=== PATIENT | female | born 1955 ===

== ENCOUNTER 2017-11-10 10:14 | Outpatient (REF) | payer BC, SELFPAY ==
[2017-11-10 13:50] LABS: Abs Immature Grans 0.01 k/cumm (0.0-0.09); Absolute Basophil Count 0.06 k/cumm (0.0-0.2); Absolute Eosinophil Count 0.27 k/cumm (0.0-0.7); Absolute Lymphocyte Count 1.51 k/cumm (1.2-3.4); Absolute Monocyte Count 0.35 k/cumm (0.11-0.7); Absolute Neutrophil Count 2.46 k/cumm (1.2-6.7); Basophils % 1.3; Eosinophils % 5.8; HCT 42.3 % (36.0-46.0); Immature Grans % 0.2; Lymphocytes % 32.4; Mean Corp. HGB Concentration 33.1 g/dL (32.0-36.0); Mean Corpuscular Hemoglobin 29.9 pg (27.0-33.0); Mean Corpuscular Volume 90.4 fL (80-95); Mean Platelet Volume 9.6 fL (8.0-11.0); Monocytes % 7.5; Neutrophils % 52.8; Platelet Count 328 x1000/uL (130-400); RBC 4.68 m/cumm (4.00-5.20); RBC Distribution Width 13.6 % (11.7-14.6); White Blood Cell Count 4.66 k/cumm (4.4-10.8)
[2017-11-10 14:26] LABS: ALT 27 U/L (12-78); AST 27 U/L (15-37); Albumin 3.7 g/dL (3.4-5.0); Alkaline Phosphatase 60 U/L (46-116)
[2017-11-10 14:28] LABS: ESR 11 MM/HR (0-30)
== END 2017-11-10 10:34 ==
LOC: NCHCN 10:14
PROVIDERS: PCP Internal Medicine; Visit Provider Nurse Practitioner Family
DX: M05.79 Rheumatoid arthritis with rheumatoid factor of multiple sites without organ or systems involvement (principal)
CPT/HCPCS: 85652; 82040; 82565; 84075; 84450; 84460; 85025

== ENCOUNTER 2017-12-03 01:11 | Outpatient (CLI) | payer BC, SELFPAY ==
--- NOTE | 2017-12-03 09:30 | DI.RAD_ITS ---
SYMPTOMS/DIAGNOSIS: SHORTNESS OF BREATH, R06.02 PA AND LATERAL CHEST: Comparison is made with November,. The heart size is normal. Scoliosis is again noted. The lungs are well inflated and clear. No infiltrate, effusion or pulmonary edema is seen. IMPRESSION: Scoliosis, otherwise negative.
== END 2017-12-03 01:31 ==
PROVIDERS: PCP Internal Medicine; Visit Provider Nurse Practitioner Family
DX: R06.02 Shortness of breath (principal)
CPT/HCPCS: 71046

== ENCOUNTER 2017-12-03 02:31 | Outpatient (CLI) | payer BC, SELFPAY ==
[2017-12-03] MEDS: Albuterol HFA 18 GM 200 PUFF INH IH (10:58)
[2017-12-03] MEDS: Inhaler, Assist Device 1 EACH MC (10:58)
--- NOTE | 2017-12-04 09:57 | PFT_ITS ---
PULMONARY FUNCTION TEST REPORT DATE OF SERVICE: December 03, 2017 REQUESTING PROVIDER: Berkley Champagne APRN Spirometry shows severe obstructive airways disease with significant bronchodilator response. Lung volumes show no evidence of restriction. There is moderate to severe hyperinflation and air trapping. Diffusion capacity normal. Airways resistance elevated. IMPRESSION: Severe obstructive airways disease with significant bronchodilator response. This is associated with moderate hyperinflation and air trapping. Clinical correlation recommended. PADMAJA/yoselin D/ SEE SCANNED DOCUMENT IN THE EMR FOR DATA AND GRAPHS
== END 2017-12-03 02:51 ==
PROVIDERS: PCP Internal Medicine; Visit Provider Nurse Practitioner Family
DX: R06.02 Shortness of breath (principal)
CPT/HCPCS: 94060; 94150; 94726; 94729

== ENCOUNTER 2018-03-18 11:23 | Outpatient (REF) | payer BC, SELFPAY ==
[2018-03-18 21:42] LABS: Abs Immature Grans 0.02 k/cumm (0.0-0.09); Absolute Basophil Count 0.06 k/cumm (0.0-0.2); Absolute Eosinophil Count 0.19 k/cumm (0.0-0.7); Absolute Lymphocyte Count 1.87 k/cumm (1.2-3.4); Absolute Neutrophil Count 4.35 k/cumm (1.2-6.7); Basophils % 0.8; Eosinophils % 2.7; HCT 42.4 % (36.0-46.0); HGB 13.8 g/dL (12.0-15.5); Immature Grans % 0.3; Lymphocytes % 26.4; Mean Corp. HGB Concentration 32.5 g/dL (32.0-36.0); Mean Corpuscular Hemoglobin 29.9 pg (27.0-33.0); Mean Platelet Volume 10.2 fL (8.0-11.0); Monocytes % 8.5; Neutrophils % 61.3; Platelet Count 341 x1000/uL (130-400); RBC 4.61 m/cumm (4.00-5.20); RBC Distribution Width 13.9 % (11.7-14.6); White Blood Cell Count 7.09 k/cumm (4.4-10.8)
[2018-03-18 21:56] LABS: ALT 22 U/L (12-78); AST 24 U/L (15-37); Albumin 3.8 g/dL (3.4-5.0); Alkaline Phosphatase 52 U/L (46-116); CREATININE 0.72 mg/dL (0.55-1.02)
[2018-03-18 22:29] LABS: ESR 6 MM/HR (0-30)
== END 2018-03-18 11:43 ==
LOC: NCHCN 11:23
PROVIDERS: PCP Internal Medicine; Visit Provider Internal Medicine
DX: M05.79 Rheumatoid arthritis with rheumatoid factor of multiple sites without organ or systems involvement (principal); Z79.899 Other long term (current) drug therapy
CPT/HCPCS: 85652; 82040; 82565; 84075; 84450; 84460; 85025

== ENCOUNTER 2018-07-23 09:51 | Outpatient (REF) | payer BC, SELFPAY ==
[2018-07-23 13:42] LABS: ALT 32 U/L (12-78); AST 31 U/L (15-37); Albumin 3.8 g/dL (3.4-5.0); Alkaline Phosphatase 60 U/L (46-116); CREATININE 0.72 mg/dL (0.55-1.02)
[2018-07-23 14:26] LABS: Abs Immature Grans 0.01 k/cumm (0.0-0.09); Absolute Basophil Count 0.05 k/cumm (0.0-0.2); Absolute Eosinophil Count 0.11 k/cumm (0.0-0.7); Absolute Monocyte Count 0.42 k/cumm (0.11-0.7); Absolute Neutrophil Count 2.35 k/cumm (1.2-6.7); Basophils % 1.1; Eosinophils % 2.4; HCT 42.2 % (36.0-46.0); HGB 14.1 g/dL (12.0-15.5); Immature Grans % 0.2; Lymphocytes % 35.2; Mean Corp. HGB Concentration 33.4 g/dL (32.0-36.0); Mean Corpuscular Hemoglobin 30.1 pg (27.0-33.0); Mean Platelet Volume 10.5 fL (8.0-11.0); Monocytes % 9.3; Neutrophils % 51.8; Platelet Count 288 x1000/uL (130-400); RBC 4.69 m/cumm (4.00-5.20); RBC Distribution Width 13.9 % (11.7-14.6); White Blood Cell Count 4.54 k/cumm (4.4-10.8)
[2018-07-23 15:53] LABS: ESR 12 MM/HR (0-30)
== END 2018-07-23 10:11 ==
LOC: NCHCN 09:51
PROVIDERS: PCP Internal Medicine; Visit Provider Nurse Practitioner Family
DX: M05.79 Rheumatoid arthritis with rheumatoid factor of multiple sites without organ or systems involvement (principal)
CPT/HCPCS: 85652; 82040; 82565; 84075; 84450; 84460; 85025

== ENCOUNTER 2018-11-12 17:10 | Outpatient (REF) | payer BC, SELFPAY ==
[2018-11-12 21:23] LABS: Abs Immature Grans 0.01 k/cumm (0.0-0.09); Absolute Basophil Count 0.07 k/cumm (0.0-0.2); Absolute Eosinophil Count 0.33 k/cumm (0.0-0.7); Absolute Lymphocyte Count 2.24 k/cumm (1.2-3.4); Absolute Monocyte Count 0.51 k/cumm (0.11-0.7); Absolute Neutrophil Count 2.97 k/cumm (1.2-6.7); Basophils % 1.1; Eosinophils % 5.4; HCT 40.3 % (36.0-46.0); HGB 13.5 g/dL (12.0-15.5); Immature Grans % 0.2; Lymphocytes % 36.5; Mean Corp. HGB Concentration 33.5 g/dL (32.0-36.0); Mean Corpuscular Hemoglobin 30.3 pg (27.0-33.0); Mean Corpuscular Volume 90.4 fL (80-95); Mean Platelet Volume 9.8 fL (8.0-11.0); Monocytes % 8.3; Neutrophils % 48.5; Platelet Count 363 x1000/uL (130-400); RBC 4.46 m/cumm (4.00-5.20); RBC Distribution Width 13.3 % (11.7-14.6); White Blood Cell Count 6.13 k/cumm (4.4-10.8)
[2018-11-12 21:46] LABS: ALT 26 U/L (14-59); AST 26 U/L (15-37); Albumin 3.7 g/dL (3.4-5.0); Alkaline Phosphatase 60 U/L (46-116)
[2018-11-12 22:07] LABS: ESR 10 mm/hr (0-30)
[2018-11-12 22:15] LABS: CREATININE 0.72 mg/dL (0.55-1.02)
== END 2018-11-12 17:30 ==
LOC: NCHCN 17:10
PROVIDERS: PCP Internal Medicine; Visit Provider Nurse Practitioner Family
DX: M05.79 Rheumatoid arthritis with rheumatoid factor of multiple sites without organ or systems involvement (principal); Z79.899 Other long term (current) drug therapy
CPT/HCPCS: 85652; 82040; 82565; 84075; 84450; 84460; 85025

== ENCOUNTER 2019-03-01 10:09 | Outpatient (REF) | payer BC, SELFPAY ==
[2019-03-01 12:38] LABS: Abs Immature Grans 0.01 k/cumm (0.0-0.09); Absolute Basophil Count 0.06 k/cumm (0.0-0.2); Absolute Eosinophil Count 0.14 k/cumm (0.0-0.7); Absolute Lymphocyte Count 1.83 k/cumm (1.2-3.4); Absolute Monocyte Count 0.29 k/cumm (0.11-0.7); Basophils % 1.2; Eosinophils % 2.9; HCT 42.4 % (36.0-46.0); HGB 14.1 g/dL (12.0-15.5); Immature Grans % 0.2 %; Lymphocytes % 37.9; Mean Corp. HGB Concentration 33.3 g/dL (32.0-36.0); Mean Corpuscular Hemoglobin 30.2 pg (27.0-33.0); Mean Corpuscular Volume 90.8 fL (80-95); Mean Platelet Volume 9.6 fL (8.0-11.0); Neutrophils % 51.8; Platelet Count 359 x1000/uL (130-400); RBC 4.67 m/cumm (4.00-5.20); RBC Distribution Width 13.6 % (11.7-14.6); White Blood Cell Count 4.83 k/cumm (4.4-10.8)
[2019-03-01 13:14] LABS: ALT 26 U/L (14-59); AST 27 U/L (15-37); Albumin 4.1 g/dL (3.4-5.0); Alkaline Phosphatase 61 U/L (46-116); CREATININE 0.63 mg/dL (0.55-1.02)
[2019-03-01 13:28] LABS: ESR 8 mm/hr (0-30)
== END 2019-03-01 10:29 ==
LOC: NCHCN 10:09
PROVIDERS: PCP Internal Medicine; Visit Provider Nurse Practitioner Family
DX: M05.79 Rheumatoid arthritis with rheumatoid factor of multiple sites without organ or systems involvement (principal); Z79.899 Other long term (current) drug therapy
CPT/HCPCS: 85652; 82040; 82565; 84075; 84450; 84460; 85025

== ENCOUNTER 2019-08-04 16:27 | Outpatient (REF) | payer BC, SELFPAY ==
[2019-08-04 20:33] LABS: Abs Immature Grans 0.01 k/cumm (0.0-0.09); Absolute Basophil Count 0.04 k/cumm (0.0-0.2); Absolute Eosinophil Count 0.19 k/cumm (0.0-0.7); Absolute Lymphocyte Count 2.52 k/cumm (1.2-3.4); Absolute Monocyte Count 0.47 k/cumm (0.11-0.7); Absolute Neutrophil Count 3.74 k/cumm (1.2-6.7); Basophils % 0.6; Eosinophils % 2.7; HCT 40.4 % (36.0-46.0); HGB 13.5 g/dL (12.0-15.5); Immature Grans % 0.1 %; Lymphocytes % 36.2; Mean Corp. HGB Concentration 33.4 g/dL (32.0-36.0); Mean Corpuscular Hemoglobin 30.3 pg (27.0-33.0); Mean Corpuscular Volume 90.6 fL (80-95); Mean Platelet Volume 10.1 fL (8.0-11.0); Monocytes % 6.7; Neutrophils % 53.7; Platelet Count 300 x1000/uL (130-400); RBC 4.46 m/cumm (4.00-5.20); RBC Distribution Width 13.3 % (11.7-14.6); White Blood Cell Count 6.97 k/cumm (4.4-10.8)
[2019-08-04 21:01] LABS: ALT 31 U/L (14-59); AST 28 U/L (15-37); Albumin 3.9 g/dL (3.4-5.0); Alkaline Phosphatase 55 U/L (46-116); CREATININE 0.75 mg/dL (0.55-1.02)
[2019-08-04 21:18] LABS: ESR 5 mm/hr (0-30)
== END 2019-08-04 16:47 ==
LOC: NCHCN 16:27
PROVIDERS: PCP Internal Medicine; Visit Provider Nurse Practitioner Family
DX: M05.79 Rheumatoid arthritis with rheumatoid factor of multiple sites without organ or systems involvement (principal); Z79.899 Other long term (current) drug therapy
CPT/HCPCS: 85652; 82040; 82565; 84075; 84450; 84460; 85025

== ENCOUNTER 2019-12-08 14:01 | Outpatient (REF) | payer BC, SELFPAY ==
[2019-12-08 21:13] LABS: Abs Immature Grans 0.01 10^3/uL (0.0-0.06); Absolute Basophil Count 0.06 10^3/uL (0.0-0.2); Absolute Eosinophil Count 0.18 10^3/uL (0.0-0.7); Absolute Lymphocyte Count 2.04 10^3/uL (1.2-3.4); Absolute Monocyte Count 0.44 10^3/uL (0.1-0.8); Absolute Neutrophil Count 2.45 10^3/uL (1.2-6.7); Basophils % 1.2; Eosinophils % 3.5; HCT 44.2 % (36.0-46.0); HGB 14.1 g/dL (11.2-15.7); Immature Grans % 0.2; Lymphocytes % 39.4; MCH 29.8 pg (27.0-33.0); MCHC 31.9 % (32.0-36.0); MCV 93.4 fL (80-95); MPV 9.8 fL (8.0-11.0); Monocytes % 8.5; Neutrophils % 47.2; Nucleated RBC 0 %; Platelet Count 336 10^3/uL (130-400); RBC 4.73 10^6/uL (3.93-5.22); RDW 13.4 % (11.7-14.6); RDW-SD 45.3 fL; WBC 5.18 10^3/uL (4.4-10.8)
[2019-12-08 21:32] LABS: ALT 24 U/L (14-59); AST 25 U/L (15-37); Albumin 3.8 g/dL (3.4-5.0); Alkaline Phosphatase 56 U/L (46-116); CREATININE 0.66 mg/dL (0.55-1.02)
[2019-12-08 21:51] LABS: ESR 7 mm/hr (0-30)
== END 2019-12-08 14:21 ==
LOC: NCHCN 14:01
PROVIDERS: PCP Internal Medicine; Visit Provider Nurse Practitioner Family
DX: M05.79 Rheumatoid arthritis with rheumatoid factor of multiple sites without organ or systems involvement (principal); Z79.899 Other long term (current) drug therapy
CPT/HCPCS: 85652; 82040; 82565; 84075; 84450; 84460; 85025

== ENCOUNTER 2020-06-18 09:51 | Outpatient (REF) | payer BC, SELFPAY ==
[2020-06-18 13:32] LABS: Abs Immature Grans 0.02 10^3/uL (0.0-0.06); Absolute Basophil Count 0.04 10^3/uL (0.0-0.2); Absolute Lymphocyte Count 1.75 10^3/uL (1.2-3.4); Absolute Monocyte Count 0.43 10^3/uL (0.1-0.8); Absolute Neutrophil Count 2.33 10^3/uL (1.2-6.7); Basophils % 0.9; Eosinophils % 2.1; HCT 43.4 % (36.0-46.0); HGB 14.4 g/dL (11.2-15.7); Immature Grans % 0.4; Lymphocytes % 37.5; MCH 29.6 pg (27.0-33.0); MCHC 33.2 % (32.0-36.0); MCV 89.1 fL (80-95); MPV 9.6 fL (8.0-11.0); Monocytes % 9.2; Neutrophils % 49.9; Nucleated RBC 0 %; Platelet Count 337 10^3/uL (130-400); RBC 4.87 10^6/uL (3.93-5.22); RDW 13.2 % (11.7-14.6); RDW-SD 43.3 fL; WBC 4.67 10^3/uL (4.4-10.8)
[2020-06-18 13:40] LABS: ALT 23 U/L (14-59); AST 25 U/L (15-37); Albumin 4.1 g/dL (3.4-5.0); Alkaline Phosphatase 69 U/L (46-116); CREATININE 0.7 mg/dL (0.55-1.02)
[2020-06-18 13:41] LABS: ESR 5 mm//hr (0-30)
== END 2020-06-18 09:52 | disposition home or self-care (01) ==
LOC: NCHCN 09:51
PROVIDERS: PCP Internal Medicine; Visit Provider Nurse Practitioner Family
DX: M05.79 Rheumatoid arthritis with rheumatoid factor of multiple sites without organ or systems involvement (principal)
CPT/HCPCS: 85652; 82040; 82565; 84075; 84450; 84460; 85025

== ENCOUNTER 2020-12-24 11:53 | Outpatient (REF) | payer BC, SELFPAY ==
[2020-12-24 14:33] LABS: Abs Immature Grans 0.01 10^3/uL (0.0-0.06); Absolute Basophil Count 0.07 10^3/uL (0.0-0.2); Absolute Eosinophil Count 0.12 10^3/uL (0.0-0.7); Absolute Lymphocyte Count 2.07 10^3/uL (1.2-3.4); Absolute Monocyte Count 0.53 10^3/uL (0.1-0.8); Absolute Neutrophil Count 2.77 10^3/uL (1.2-6.7); Basophils % 1.3; Eosinophils % 2.2; HCT 44.9 % (36.0-46.0); HGB 14.5 g/dL (11.2-15.7); Immature Grans % 0.2; Lymphocytes % 37.2; MCH 29.4 pg (27.0-33.0); MCHC 32.3 % (32.0-36.0); MCV 90.9 fL (80-95); MPV 9.7 fL (8.0-11.0); Monocytes % 9.5; Neutrophils % 49.6; Nucleated RBC 0 %; Platelet Count 351 10^3/uL (130-400); RBC 4.94 10^6/uL (3.93-5.22); RDW 13.1 % (11.7-14.6); RDW-SD 43.2 fL; WBC 5.57 10^3/uL (4.4-10.8)
[2020-12-24 14:38] LABS: ALT 25 U/L (14-59); AST 25 U/L (15-37); Albumin 4.2 g/dL (3.4-5.0); Alkaline Phosphatase 60 U/L (46-116); CREATININE 0.7 mg/dL (0.55-1.02)
[2020-12-24 14:39] LABS: ESR 3 mm/hr (0-30)
[2020-12-25 17:10] LABS: C-Reactive Protein 0.06 mg/dL (0.0-0.3)
== END 2020-12-24 11:54 | disposition home or self-care (01) ==
LOC: NCHCN 11:53
PROVIDERS: PCP Internal Medicine; Visit Provider Nurse Practitioner Family
DX: Z79.899 Other long term (current) drug therapy (principal); M06.09 Rheumatoid arthritis without rheumatoid factor, multiple sites; M05.79 Rheumatoid arthritis with rheumatoid factor of multiple sites without organ or systems involvement
CPT/HCPCS: 85652; 82040; 82565; 84075; 84450; 84460; 85025; 86140

== ENCOUNTER 2021-06-24 15:18 | Outpatient (REF) | payer BC, SELFPAY ==
[2021-06-24 21:31] LABS: Abs Immature Grans 0.01 10^3/uL (0.0-0.06); Absolute Basophil Count 0.07 10^3/uL (0.0-0.2); Absolute Lymphocyte Count 1.93 10^3/uL (1.2-3.4); Absolute Monocyte Count 0.51 10^3/uL (0.1-0.8); Absolute Neutrophil Count 3.34 10^3/uL (1.2-6.7); Basophils % 1.2; Eosinophils % 1.7; HCT 40.6 % (36.0-46.0); HGB 13.3 g/dL (11.2-15.7); Immature Grans % 0.2; Lymphocytes % 32.4; MCHC 32.8 % (32.0-36.0); MCV 91 fL (80-95); MPV 9.7 fL (8.0-11.0); Monocytes % 8.6; Neutrophils % 55.9; Platelet Count 290 10^3/uL (130-400); RBC 4.44 10^6/uL (3.93-5.22); RDW 13.1 % (11.7-14.6); RDW-SD 43.8 fL; WBC 5.96 10^3/uL (4.4-10.8)
[2021-06-24 21:40] LABS: ALT 28 U/L (14-59); AST 30 U/L (15-37); Albumin 3.8 g/dL (3.4-5.0); Alkaline Phosphatase 53 U/L (46-116); CREATININE 0.6 mg/dL (0.55-1.02)
[2021-06-24 21:49] LABS: ESR 4 mm/hr (0-30)
[2021-06-26 10:16] LABS: Anion Gap 8.5 mmol/L (3-11); BUN 15 mg/dL (7-18); Bilirubin, Total 0.4 mg/dL (0.2-1.0); CO2 26.5 mmol/L (21.0-32.0); Calcium 8.5 mg/dL (8.5-10.1); Chloride 106 mmol/L (98-107); Glucose 74 mg/dL (74-106); Potassium 4.3 mmol/L (3.5-5.1); Sodium 141 mmol/L (136-145); Total Protein 6.6 g/dL (6.4-8.2)
== END 2021-06-24 15:19 | disposition home or self-care (01) ==
LOC: NCHCN 15:18
PROVIDERS: PCP Internal Medicine; Visit Provider Nurse Practitioner Family
DX: M05.79 Rheumatoid arthritis with rheumatoid factor of multiple sites without organ or systems involvement (principal); J44.9 Chronic obstructive pulmonary disease, unspecified
CPT/HCPCS: 80053; 85652; 82040; 82565; 84075; 84450; 84460; 85025

== ENCOUNTER 2021-12-10 17:01 | Outpatient (REF) | payer BC, SELFPAY ==
[2021-12-10 14:54] LABS: Abs Immature Grans 0.01 10^3/uL (0.0-0.06); Absolute Basophil Count 0.08 10^3/uL (0.0-0.2); Absolute Eosinophil Count 0.11 10^3/uL (0.0-0.7); Absolute Lymphocyte Count 1.99 10^3/uL (1.2-3.4); Absolute Monocyte Count 0.32 10^3/uL (0.1-0.8); Absolute Neutrophil Count 3.04 10^3/uL (1.2-6.7); Basophils % 1.4; HCT 43.6 % (36.0-46.0); HGB 14.1 g/dL (11.2-15.7); Immature Grans % 0.2; Lymphocytes % 35.9; MCH 29.7 pg (27.0-33.0); MCHC 32.3 % (32.0-36.0); MCV 92 fL (80-95); MPV 9.4 fL (8.0-11.0); Monocytes % 5.8; Neutrophils % 54.7; Platelet Count 320 10^3/uL (130-400); RBC 4.75 10^6/uL (3.93-5.22); RDW 13.2 % (11.7-14.6); RDW-SD 44.5 fL; WBC 5.55 10^3/uL (4.4-10.8)
[2021-12-10 14:56] LABS: ESR 6 mm/hr (0-30)
[2021-12-10 15:07] LABS: ALT 25 U/L (14-59); AST 30 U/L (15-37); Albumin 4.1 g/dL (3.4-5.0); Alkaline Phosphatase 54 U/L (46-116); CREATININE 0.7 mg/dL (0.55-1.02); Estimated GFR 94.73 (mL/min/1.73m2)
[2021-12-11 09:57] LABS: ALT 23 U/L (14-59); AST 27 U/L (15-37); Albumin 4.2 g/dL (3.4-5.0); Alkaline Phosphatase 55 U/L (46-116); Anion Gap 8.9 mmol/L (3-11); BUN 17 mg/dL (7-18); Bilirubin, Total 0.7 mg/dL (0.2-1.0); C-Reactive Protein 0.11 mg/dL (0.0-0.3); CO2 29.1 mmol/L (21.0-32.0); CREATININE 0.7 mg/dL (0.55-1.02); Calcium 9.2 mg/dL (8.5-10.1); Chloride 108 mmol/L (98-107); Estimated GFR 94.73 (mL/min/1.73m2); Glucose 80 mg/dL (74-106); Potassium 5.4 mmol/L (3.5-5.1); Sodium 146 mmol/L (136-145); Total Protein 7.3 g/dL (6.4-8.2)
== END 2021-12-10 17:02 | disposition home or self-care (01) ==
LOC: NCHCN 17:01
PROVIDERS: Internal Medicine Rheumatology; PCP Internal Medicine; Visit Provider Nurse Practitioner Family
DX: M05.79 Rheumatoid arthritis with rheumatoid factor of multiple sites without organ or systems involvement (principal); Z79.899 Other long term (current) drug therapy; J44.9 Chronic obstructive pulmonary disease, unspecified
CPT/HCPCS: 80053; 85652; 82040; 82565; 84075; 84450; 84460; 85025; 86140

== ENCOUNTER 2022-06-25 10:08 | Outpatient (CLI) | payer BC, SELFPAY ==
[2022-06-25 10:19] LABS: Abs Immature Grans 0.02 10^3/uL (0.0-0.06); Absolute Basophil Count 0.05 10^3/uL (0.0-0.2); Absolute Eosinophil Count 0.08 10^3/uL (0.0-0.7); Absolute Lymphocyte Count 1.72 10^3/uL (1.2-3.4); Absolute Monocyte Count 0.51 10^3/uL (0.1-0.8); Absolute Neutrophil Count 2.85 10^3/uL (1.2-6.7); Eosinophils % 1.5; HCT 43.4 % (36.0-46.0); HGB 14.5 g/dL (11.2-15.7); Immature Grans % 0.4; Lymphocytes % 32.9; MCH 29.8 pg (27.0-33.0); MCHC 33.4 % (32.0-36.0); MCV 89 fL (80-95); MPV 8.6 fL (8.0-11.0); Monocytes % 9.8; Neutrophils % 54.4; Platelet Count 322 10^3/uL (130-400); RBC 4.86 10^6/uL (3.93-5.22); RDW 12.8 % (11.7-14.6); RDW-SD 41.5 fL; WBC 5.23 10^3/uL (4.4-10.8)
[2022-06-25 10:57] LABS: ALT 29 U/L (14-59); AST 29 U/L (15-37); Albumin 3.9 g/dL (3.4-5.0); Alkaline Phosphatase 53 U/L (46-116); Anion Gap 5.9 mmol/L (3-11); BUN 14 mg/dL (7-18); Bilirubin, Total 0.4 mg/dL (0.2-1.0); C-Reactive Protein 0.08 mg/dL (0.0-0.3); CO2 30.1 mmol/L (21.0-32.0); CREATININE 0.7 mg/dL (0.55-1.02); Calcium 9.3 mg/dL (8.5-10.1); Chloride 107 mmol/L (98-107); Estimated GFR 94.73 (mL/min/1.73m2); Glucose 89 mg/dL (74-106); Potassium 4.9 mmol/L (3.5-5.1); Sodium 143 mmol/L (136-145); Total Protein 7.4 g/dL (6.4-8.2)
== END 2022-06-25 10:09 | disposition home or self-care (01) ==
PROVIDERS: PCP Internal Medicine; Visit Provider Internal Medicine Rheumatology
DX: M05.79 Rheumatoid arthritis with rheumatoid factor of multiple sites without organ or systems involvement (principal); Z79.899 Other long term (current) drug therapy; M06.9 Rheumatoid arthritis, unspecified
CPT/HCPCS: 36415; 80053; 85025; 86140

== ENCOUNTER 2022-09-15 12:37 | Emergency (ER) | payer BC, SELFPAY ==
[2022-09-15 12:52] VITALS: BP 134/80; PULSE 71; RESP 16; TEMP 37; O2SAT 98
--- NOTE | 2022-09-15 15:14 | DI.RAD_ITS ---
Exam(s) XR PORTABLE CHEST AP EXAM: XR PORTABLE CHEST AP CLINICAL HISTORY: chest pain, trauma TECHNIQUE: 2D digital imaging was performed of the chest. One image was obtained. An AP view was ob tained. COMPARISON: CR XR CHEST 2V PA LATERAL from 12/03/2017 FINDINGS: MEDIASTINUM: Normal. HEART: Normal. PULMONARY VASCULATURE: Normal. LUNGS: Clear. PLEURAL SPACE: No pleural effusion or pneumothorax. BONE:Within normal limits for the patient's age. There is an old healed left clavicular fracture. Th ere is right convex curvature of the thoracic spine. OTHER FINDINGS:Normal. IMPRESSION: No acute pulmonary findings. DATA REPOSITORY: RADIATION DOSE DELIVERED:
--- NOTE | 2022-09-15 15:59 | ED.GENADUL_ITS ---
Discharge Plan Disposition Patient Disposition: Home Condition: Stable Discharge Details Clinical Impression: Laceration of skin of right thigh, Skin tear of right forearm without complication, Contusion of rib on right side Primary Care Provider: Tani Miramontes ED Provider: Hood Luevano Home Meds and New Rx's Prescriptions: New cephalexin 500 mg capsule 500 mg PO TID Qty: 9 0RF Continued leucovorin calcium 25 mg Tablet Patient Comments: pt unsure of dosing. ibuprofen 200 mg Tablet 400 mg PO TID PRN hydroxychloroquine 200 mg Tablet 200 mg PO DAILY Discharge Instructions Instructions: Laceration (ED), Rib Contusion (ED) Additional Instructions: Please follow-up for suture removal in 12 days. Please take antibiotic prophylactically as prescribed. Please contact your primary care physician to arrange follow-up. Return to the ER immediately for any worsening or new concerning symptoms. Referrals: Tani Miramontes MD [Primary Care Provider] - Medical Decision Making 1600 --67-year-old female here after fall from truck bed into trash embankment with injury to her right anterior lateral chest wall, skin tear to right forearm and complex deep laceration to her right thigh. Patient saturating well and in no respiratory distress. Hemodynamically stable. Abdominal exam benign. Patient neurovascular intact distally. Considered pneumothorax. Chest x-ray was reviewed and interpreted by radiology: No acute pulmonary findings. Old healed left clavicular fracture. Plan for wound irrigation and and primary closure. AMBROCIO Kent assisted with laceration repair and performed deep closure and lateral edge closure. I performed anterior edge closure. We will give tetanus booster. HPI General Mode of arrival: ambulatory . Date/Time Provider Initiated Documentation: 09/15/22 14:28 . Limitations to Documentation: no limitations . Information obtained by: patient . HPI Narrative: 67-year-old female presents with chief complaint of laceration. Patient notes she was on the back of a pickup and fell from the bed into an embankment filled with trash. She sustained laceration to her anterior lateral right thigh. Patient also sustained superficial laceration to her right forearm. Patient did not hit her head or lose consciousness. She did impact her right lateral ribs and has pain on palpation and with deep inspiration. No abdominal pain. No neck pain or back pain. Patient has no numbness or tingling distal to wounds. Related Data Home Medications Medication Instructions Recorded Confirmed cephalexin 500 mg capsule 500 mg PO TID #9 caps 09/15/22 hydroxychloroquine 200 mg tablet 200 mg PO DAILY 09/15/22 09/15/22 ibuprofen 200 mg tablet 400 mg PO TID PRN 09/15/22 09/15/22 leucovorin calcium 25 mg tablet mg 09/15/22 Previous Rx's Medication Instructions Recorded cephalexin 500 mg capsule 500 mg PO TID #9 caps 09/15/22 Allergies Allergy/AdvReac Type Severity Reaction Status Date / Time No Known Allergies Allergy Unverified 09/15/22 12:58 General Stated Complaint: Trauma ARNOLDO: 3 Review of Systems All systems reviewed & are unremarkable except as noted in HPI and below PFSH All Active Problems (Updated 09/15/22 @ 16:07 by Hood Luevano MD) Laceration of skin of right thigh (Acute) Skin tear of right forearm without complication (Acute) Contusion of rib on right side (Acute) Social History Smoking risk assessment performed?: No Exam Const General: cooperative and no acute distress HENMT Head: normocephalic and atraumatic Mouth: moist mucous membranes Eyes Conjunctivae: normal conjunctivae Sclera: normal sclerae Resp Auscultation: clear to auscultation bilaterally, no rales, no rhonchi and no wheezes Cardio Rate: regular rate and not tachycardic Rhythm: regular rhythm GI Palpation: soft, not firm, no guarding, no masses, not rigid and nontender Back/Spine/Pelvis Cervical Spine: cervical ROM normal and No cervical spinal tenderness Thoracic/Lumbar Spine: scoliosis, No thoracic spinal tenderness and No lumbar spinal tenderness Skin Trauma: laceration (Skin tear right forearm, large lac rt ant lat thigh extending deep to muscl) Other: Laceration right thigh approximately 10 cm, full-thickness skin Neuro General: patient alert, patient awake, patient oriented x3 and tone normal Extrem General: no edema Right lower extremity: hip/thigh Details: normal ROM and laceration (See skin above) Other: Distal right lower extremity sensation and motor intact Psych Appearance: grossly normal Mental Status: mental status grossly normal Speech and Movement: speech and movement normal Course Vital Signs Vital signs: Vital Signs Temperature 37.0 C 09/15/22 12:52 Pulse 71 09/15/22 12:52 Respiratory Rate 16 09/15/22 12:52 Blood Pressure 134/80 09/15/22 12:52 Pulse Oximetry 98 09/15/22 12:52 Temperature 37.0 C 09/15/22 12:52 Temperature Source Skin 09/15/22 12:52 Pulse 71 09/15/22 12:52 Respiratory Rate 16 09/15/22 12:52 Blood Pressure 134/80 09/15/22 12:52 Blood Pressure Position Sitting 09/15/22 12:52 Pulse Oximetry 98 09/15/22 12:52 Oxygen Delivery Method Room Air 09/15/22 12:52 Oxygen Flow Rate 0 09/15/22 12:52 Procedures Laceration Laceration 1: Side (If applicable): right Size (cm): 10 Description: flap and irregular Local Anesthetic: Lidocaine 2% and with Epi Amount of anesthesia used (mL): 18 Pre-repair: wound explored, irrigated extensively and deep structures intact Skin layer closed with: nylon Size (cm): 4-0 Number of sutures: 11 Technique: horizontal mattress Subcutaneous layer closed with: vicryl Size: 4-0 Number of sutures: 5 Technique: simple, interrupted
[2022-09-15] MEDS: Cephalexin 500 MG CAP PO (16:53)
== END 2022-09-15 17:01 | disposition home or self-care (01) ==
PROVIDERS: Emergency Provider Student in an Organized Health Care Education/Training Program; PCP Internal Medicine
DX: S71.111A Laceration without foreign body, right thigh, initial encounter (principal); S51.811A Laceration without foreign body of right forearm, initial encounter; S20.211A Contusion of right front wall of thorax, initial encounter; W19.XXXA Unspecified fall, initial encounter
CPT/HCPCS: 12034; 90471; 99283; 71045; 99284

== ENCOUNTER 2022-12-16 15:18 | Outpatient (REF) | payer BC, SELFPAY ==
[2022-12-16 21:05] LABS: Abs Immature Grans 0.01 10^3/uL (0.0-0.06); Absolute Basophil Count 0.08 10^3/uL (0.0-0.2); Absolute Eosinophil Count 0.09 10^3/uL (0.0-0.7); Absolute Lymphocyte Count 1.86 10^3/uL (1.2-3.4); Absolute Monocyte Count 0.42 10^3/uL (0.1-0.8); Absolute Neutrophil Count 2.93 10^3/uL (1.2-6.7); Basophils % 1.5; Eosinophils % 1.7; HCT 44.7 % (36.0-46.0); HGB 14.5 g/dL (11.2-15.7); Immature Grans % 0.2; Lymphocytes % 34.5; MCH 29.5 pg (27.0-33.0); MCHC 32.4 % (32.0-36.0); MCV 91 fL (80-95); MPV 9.7 fL (8.0-11.0); Monocytes % 7.8; Neutrophils % 54.3; Platelet Count 383 10^3/uL (130-400); RBC 4.91 10^6/uL (3.93-5.22); RDW 13.6 % (11.7-14.6); RDW-SD 45.2 fL; WBC 5.39 10^3/uL (4.4-10.8)
[2022-12-16 21:18] LABS: ESR 4 mm/hr (0-30)
[2022-12-16 21:20] LABS: ALT 36 U/L (14-59); AST 37 U/L (15-37); Albumin 4.2 g/dL (3.4-5.0); Alkaline Phosphatase 62 U/L (46-116); CREATININE 0.7 mg/dL (0.55-1.02); Estimated GFR 94.15 (mL/min/1.73m2)
== END 2022-12-16 15:19 | disposition home or self-care (01) ==
LOC: NCHCN 15:18
PROVIDERS: PCP Internal Medicine; Visit Provider Nurse Practitioner Family
DX: M05.79 Rheumatoid arthritis with rheumatoid factor of multiple sites without organ or systems involvement (principal); Z79.899 Other long term (current) drug therapy
CPT/HCPCS: 85652; 82040; 82565; 84075; 84450; 84460; 85025

== ENCOUNTER 2023-05-04 15:34 | Outpatient (REF) | payer BC, SELFPAY ==
[2023-05-04 15:43] LABS: HCT 41.4 % (36.0-46.0); HGB 13.4 g/dL (11.2-15.7); MCH 29.3 pg (27.0-33.0); MCHC 32.4 % (32.0-36.0); MCV 91 fL (80-95); MPV 9.5 fL (8.0-11.0); Platelet Count 338 10^3/uL (130-400); RBC 4.57 10^6/uL (3.93-5.22); RDW 13.6 % (11.7-14.6); RDW-SD 44.8 fL; WBC 5.81 10^3/uL (4.4-10.8)
[2023-05-04 15:47] LABS: ESR 1 mm/hr (0-30)
[2023-05-04 17:14] LABS: ALT 27 U/L (14-59); AST 31 U/L (15-37); Alkaline Phosphatase 59 U/L (46-116); CREATININE 0.7 mg/dL (0.55-1.02); Estimated GFR 94.15 (mL/min/1.73m2)
== END 2023-05-04 15:35 | disposition home or self-care (01) ==
LOC: NCHCN 15:34
PROVIDERS: PCP Internal Medicine; Visit Provider Nurse Practitioner Family
DX: Z79.899 Other long term (current) drug therapy (principal)
CPT/HCPCS: 85027; 85652; 82040; 82565; 84075; 84450; 84460

== ENCOUNTER 2023-11-19 12:11 | Outpatient (REF) | payer BC, SELFPAY ==
[2023-11-19 15:36] LABS: Abs Immature Grans 0.02 10^3/uL (0.0-0.06); Absolute Basophil Count 0.07 10^3/uL (0.0-0.2); Absolute Eosinophil Count 0.12 10^3/uL (0.0-0.7); Absolute Lymphocyte Count 2.36 10^3/uL (1.2-3.4); Absolute Monocyte Count 0.43 10^3/uL (0.1-0.8); Absolute Neutrophil Count 3.16 10^3/uL (1.2-6.7); Basophils % 1.1 %; Eosinophils % 1.9 %; HCT 42.6 % (36.0-46.0); HGB 13.8 g/dL (11.2-15.7); Immature Grans % 0.3 %; Lymphocytes % 38.3 %; MCH 29.4 pg (27.0-33.0); MCHC 32.4 % (32.0-36.0); MCV 91 fL (80-95); MPV 9.6 fL (8.0-11.0); Neutrophils % 51.4 %; Platelet Count 333 10^3/uL (130-400); RDW 13.2 % (11.7-14.6); RDW-SD 43.9 fL; WBC 6.16 10^3/uL (4.4-10.8)
[2023-11-19 15:49] LABS: ALT 28 U/L (14-59); AST 32 U/L (15-37); Albumin 3.9 g/dL (3.4-5.0); Alkaline Phosphatase 66 U/L (46-116); Anion Gap 6.4 mmol/L (3-11); BUN 18 mg/dL (7-18); Bilirubin, Total 0.64 mg/dL (0.2-1.0); CO2 29.6 mmol/L (21.0-32.0); CREATININE 0.7 mg/dL (0.55-1.02); Calcium 9.2 mg/dL (8.5-10.1); Chloride 102 mmol/L (98-107); Estimated GFR 93.56 (mL/min/1.73m2); Glucose 83 mg/dL (74-106); Potassium 4.6 mmol/L (3.5-5.1); Sodium 138 mmol/L (136-145); Total Protein 6.9 g/dL (6.4-8.2)
[2023-11-19 15:50] LABS: C-Reactive Protein < 0.50 mg/dL (<or=0.5)
== END 2023-11-19 12:12 | disposition home or self-care (01) ==
LOC: NCHCN 12:11
PROVIDERS: PCP Internal Medicine; Visit Provider Nurse Practitioner Family
DX: M05.9 Rheumatoid arthritis with rheumatoid factor, unspecified (principal)
CPT/HCPCS: 80053; 85025; 86140

== ENCOUNTER 2024-07-04 14:06 | Outpatient (REF) | payer BC, SELFPAY ==
[2024-07-04 15:05] LABS: Abs Immature Grans 0.02 10^3/uL (0.0-0.06); Absolute Basophil Count 0.05 10^3/uL (0.0-0.2); Absolute Eosinophil Count 0.06 10^3/uL (0.0-0.7); Absolute Lymphocyte Count 2.22 10^3/uL (1.2-3.4); Absolute Monocyte Count 0.41 10^3/uL (0.1-0.8); Absolute Neutrophil Count 2.97 10^3/uL (1.2-6.7); Basophils % 0.9 %; HCT 41.4 % (36.0-46.0); HGB 14.1 g/dL (11.2-15.7); Immature Grans % 0.3 %; Lymphocytes % 38.7 %; MCH 29.3 pg (27.0-33.0); MCHC 34.1 % (32.0-36.0); MCV 86 fL (80-95); MPV 9.8 fL (8.0-11.0); Monocytes % 7.2 %; Neutrophils % 51.9 %; Platelet Count 312 10^3/uL (130-400); RBC 4.82 10^6/uL (3.93-5.22); RDW 13.3 % (11.7-14.6); WBC 5.73 10^3/uL (4.4-10.8)
[2024-07-04 16:04] LABS: ALT 25 U/L (14-59); AST 37 U/L (15-37); Alkaline Phosphatase 64 U/L (46-116); Anion Gap 7.5 mmol/L (3-11); BUN 19 mg/dL (7-18); Bilirubin, Total 0.6 mg/dL (0.2-1.0); CO2 29.5 mmol/L (21.0-32.0); CREATININE 0.7 mg/dL (0.55-1.02); Calcium 9.5 mg/dL (8.5-10.1); Chloride 104 mmol/L (98-107); Estimated GFR 93.56 (mL/min/1.73m2); Glucose 79 mg/dL (74-106); Potassium 4.8 mmol/L (3.5-5.1); Sodium 141 mmol/L (136-145); Total Protein 7.2 g/dL (6.4-8.2)
[2024-07-04 16:05] LABS: C-Reactive Protein < 0.50 mg/dL (<or=0.5)
== END 2024-07-04 14:07 | disposition home or self-care (01) ==
LOC: NCHCN 14:06
PROVIDERS: PCP Nurse Practitioner Family; Visit Provider Nurse Practitioner Family
DX: M05.9 Rheumatoid arthritis with rheumatoid factor, unspecified (principal)
CPT/HCPCS: 80053; 85025; 86140

== ENCOUNTER 2025-01-16 13:28 | Outpatient (REF) | payer BC, SELFPAY ==
[2025-01-16 21:21] LABS: Abs Immature Grans 0.01 10^3/uL (0.0-0.06); HCT 39.5 % (36.0-46.0); HGB 13.2 g/dL (11.2-15.7); Immature Grans % 0.2 %; MCH 29.5 pg (27.0-33.0); MCHC 33.4 % (32.0-36.0); MCV 88 fL (80-95); MPV 9.5 fL (8.0-11.0); Platelet Count 325 10^3/uL (130-400); RBC 4.47 10^6/uL (3.93-5.22); RDW 13.2 % (11.7-14.6); RDW-SD 42.4 fL; WBC 6.46 10^3/uL (4.4-10.8)
[2025-01-16 21:39] LABS: ALT 25 U/L (10-49); AST 39 U/L (<34); Albumin 4.4 g/dL (3.4-5.0); Alkaline Phosphatase 46 U/L (46-116); Anion Gap 6.2 mmol/L (3-11); BUN 20 mg/dL (9-23); Bilirubin, Total 0.60 mg/dL (0.2-1.2); CO2 27.8 mmol/L (20.0-31.0); Calcium 9.1 mg/dL (8.3-10.6); Chloride 107 mmol/L (98-107); Glucose 74 mg/dL (74-106); Potassium 5.1 mmol/L (3.5-5.1); Sodium 141 mmol/L (136-145); Total Protein 6.7 g/dL (5.7-8.2)
[2025-01-17 18:22] LABS: CRP, High Sensitivity <0.34 mg/L (See Note)
== END 2025-01-16 13:29 | disposition home or self-care (01) ==
LOC: NCHCN 13:28
PROVIDERS: PCP Nurse Practitioner Family; Visit Provider Nurse Practitioner Family
DX: M05.9 Rheumatoid arthritis with rheumatoid factor, unspecified (principal)
CPT/HCPCS: 80053; 86141; 85025